=== PATIENT | female | born 1985 | race Two or more races ===

== ENCOUNTER 2025-07-19 10:01 | Emergency (ER) | payer SELFPAY ==
[~2025-07-19] VITALS: Ht 160 cm; Wt 98.9 kg
[2025-07-19 11:05] VITALS: BP 150/87; TEMP 98.5; O2SAT 98
== END 2025-07-19 11:06 | disposition home or self-care (01) ==
LOC: ER 10:10
DX: I10 Essential (primary) hypertension (principal); J45.909 Unspecified asthma, uncomplicated; Z88.0 Allergy status to penicillin; Z88.2 Allergy status to sulfonamides